=== PATIENT | male | born 1965 | race Caucasian/White ===

== ENCOUNTER 2016-11-26 10:24 | Emergency (ER) | payer BC ==
[2016-11-26 10:45] VITALS: PULSE 78; TEMP 97.8
[2016-11-26 11:17] LABS: RBC URINE 2 /hpf (0-3); URINE BILIRUBIN NEGATIVE (NEGATIVE); URINE BLOOD NEGATIVE (NEGATIVE); URINE COLOR Yellow (YELLOW); URINE GLUCOSE (UA) NORMAL (Normal); URINE KETONE NEGATIVE (NEGATIVE); URINE LEUKOCYTE ESTERASE NEG Leu/uL (Negative); URINE PROTEIN NEGATIVE (NEGATIVE); URINE UROBILINOGEN NORMAL mg/dL (0.2-1.0); WBC URINE 2 /hpf (0-5)
--- NOTE | 2016-11-26 12:44 | C.PDOC ---
History Of Present Illness Pt c/o suprapubic pain that started 2 days ago and gradually improved. Time Seen by Provider: 11/26/16 12:19 Chief Complaint (Nursing): Abdominal Pain History Per: Patient Onset/Duration Of Symptoms: Days (2) Current Symptoms Are (Timing): Gone Severity: Moderate Location Of Pain/Discomfort: Suprapubic Quality Of Discomfort: "Pain" Exacerbating Factors: Other (Urination) Alleviating Factors: OTC Meds Additional History Per: Prior Records Past Medical History Reviewed: Historical Data, Nursing Documentation, Vital Signs Vital Signs: Last Vital Signs Temp 97.8 F 11/26/16 10:42 Pulse 78 11/26/16 10:42 Resp 18 11/26/16 10:42 BP 121/77 11/26/16 10:42 Pulse Ox 97 11/26/16 10:42 - Medical History PMH: No Chronic Diseases Surgical History: No Surg Hx Family History: States: Other (Kidney stones) - Social History Hx Tobacco Use: No Hx Alcohol Use: No Hx Substance Use: No - Immunization History Hx Tetanus Toxoid Vaccination: No Hx Influenza Vaccination: No Hx Pneumococcal Vaccination: No Review Of Systems Except As Marked, All Systems Reviewed And Found Negative. Constitutional: Negative for: Fever, Weakness Cardiovascular: Negative for: Chest Pain Respiratory: Negative for: Shortness of Breath Gastrointestinal: Negative for: Vomiting, Diarrhea, Constipation Genitourinary: Negative for: Scrotal Pain Musculoskeletal: Negative for: Neck Pain, Back Pain Skin: Negative for: Rash Neurological: Negative for: Weakness, Numbness, Seizures, Altered Mental Status Physical Exam - Physical Exam Appears: Non-toxic, No Acute Distress Skin: Normal Color, Warm, Dry, No Rash Head: Atraumatic, Normacephalic Eye(s): bilateral: PERRL, EOMI Neck: Normal ROM, Supple Cardiovascular: Rhythm Regular Respiratory: Normal Breath Sounds, No Accessory Muscle Use Gastrointestinal/Abdominal: Soft, No Tenderness Back: No CVA Tenderness Male Genital: No Testicular Tenderness, No Testicular Swelling, No Inguinal Tenderness, No Inguinal Swelling, No Scrotal Swelling, Circumcised Extremity: Normal ROM Neurological/Psych: Oriented x3, Normal Motor, Normal Sensation ED Course And Treatment - Laboratory Results Interpretation Of Abnormal: Urinalysis normal O2 Sat by Pulse Oximetry: 97 Pulse Ox Interpretation: Normal Reassessment Condition: Improved Medical Decision Making Medical Decision Making: Pt most like passed a small kidney stone. Disposition Counseled Patient/Family Regarding: Studies Performed, Diagnosis, Need For Followup - Disposition Referrals: lEba Hoyos MD [Medical Doctor] - Disposition: HOME/ ROUTINE Disposition Time: 12:45 Condition: IMPROVED Additional Instructions: Follow up with your doctor this week for further evaluation and treatment. Return to the ER if you develop fever, vomiting, pain returns, worsening of symptoms or if you have any other concerns. Forms: Gen Discharge Inst Togolese, General Discharge Instructions - Clinical Impression Clinical Impression: Resolved abdominal pain
[2016-11-26 12:54] VITALS: BP 122/85; RESP 16; O2SAT 98
== END 2016-11-26 12:53 | disposition home or self-care (01) ==
LOC: C.ER 10:24
DX: R10.30 Lower abdominal pain, unspecified (principal)

== ENCOUNTER 2018-03-06 18:06 | Inpatient (IN) | payer BC ==
[2018-03-06 18:07] VITALS: BMI 31.5
[2018-03-06] MEDS ORDERED: Sodium Chloride 0.9% 1,000 ML IV ONE ×2 (18:44→21:23)
[2018-03-06] MEDS ORDERED: levETIRAcetam 500 MG in Sodium Chloride 0.9% 100 ML IVPB STA (18:44)
--- NOTE | 2018-03-06 19:12 | C.PDOC ---
History Of Present Illness 59 year old male with PMHx of seizures presents to the ED for evaluation of witnessed at home. While en route to the ED in the ambulance patient had 3 more witnessed by EMS seizures of 45 seconds each. Patient was given 2 mg of ativan IV. Patient admits to drinking the equivalent of 10-15 alcoholic beverages/day ( 6 x 24 ounce beers, and "a few shots") pt's sister presents later to support the HPI. Pt heavy drinker of alcohol, unclear medication compliance. pt's sister insists pt is admitted overnight as pts mother is elderly and cannot care for him alone. pt's sister insists on head CT, though no clinical indication and unnecessary radiation to brain is explained, "because his wants it." Time Seen by Provider: 03/06/18 18:39 Chief Complaint (Nursing): Seizure History Per: Patient, EMS History/Exam Limitations: no limitations Recent Seizure Activity Began: Just Before Arrival Number Of Seizures: Multiple Length Of Seizures (Duration): Seconds (45) Quality Of Seizure: Generalized Post-ictal Period: Yes Severity: Mild Recent travel outside of the [place]: No Additional History Per: Patient, EMS Past Medical History Reviewed: Historical Data, Nursing Documentation, Vital Signs Vital Signs: Last Vital Signs Temp 98.5 F 03/06/18 22:35 Pulse 71 03/06/18 22:35 Resp 18 03/06/18 22:35 BP 180/89 H 03/06/18 22:35 Pulse Ox 97 03/06/18 22:35 - Medical History PMH: Seizures Surgical History: No Surg Hx Family History: States: Unknown Family Hx - Social History Hx Tobacco Use: No Hx Alcohol Use: No Hx Substance Use: No - Immunization History Hx Tetanus Toxoid Vaccination: No Hx Influenza Vaccination: No Hx Pneumococcal Vaccination: No Review Of Systems Constitutional: Negative for: Fever, Chills Cardiovascular: Negative for: Chest Pain Respiratory: Negative for: Shortness of Breath Gastrointestinal: Negative for: Nausea, Vomiting Genitourinary: Negative for: Dysuria, Frequency, Incontinence Neurological: Positive for: Confusion. Negative for: Weakness, Numbness, Headache, Dizziness Physical Exam - Physical Exam Appears: Non-toxic, Confused Skin: Normal Color, Warm, Dry Head: Atraumatic, Normacephalic Eye(s): bilateral: Normal Inspection Oral Mucosa: Moist Neck: Normal ROM, No Midline Cervical Tenderness, Supple Chest: Symmetrical Cardiovascular: Rhythm Regular Respiratory: Normal Breath Sounds, No Rales, No Rhonchi, No Wheezing Gastrointestinal/Abdominal: Soft, No Tenderness, No Guarding, No Rebound Extremity: Normal ROM, No Tenderness, No Swelling Extremity: Bilateral: Atraumatic Neurological/Psych: Oriented x3 Gait: Unable To Assess ED Course And Treatment - Laboratory Results Result Diagrams: 03/06/18 19:10 03/06/18 19:09 Lab Interpretation: Normal (bnp/trop neg, CPK 602 mild elev) ECG: Interpreted By Ri ECG Rhythm: Sinus Rhythm, Nonspecific Changes (+ t^ inversions III, AVF, v5, v6 no reciprocal changes.) ECG Interpretation: Normal Rate From EC O2 Sat by Pulse Oximetry: 98 (ON RA) Pulse Ox Interpretation: Normal - Radiology CXR: Interpreted by Me CXR Interpretation: Yes: No Acute Disease - CT Scan/US CT HEAD Other Rad Studies (CT/US): Read By Radiologist, Radiology Report Reviewed CT/US Interpretation: IMPRESSION: Remote right posterior parietal craniotomy, encephalomalacia in the underlying. posterior right parietal lobe, no acute intracranial abnormality; sinus disease. Thank you for allowing us to participate in the care of your patient. Dictated and Authenticated by: Naila Forrester MD. 03/06/2018 10:37 PM Eastern Time ([place] & [place]) Progress Note: 2100: pt irritable, argumentative. pt allows pt's family to decide if he will be admitted for overnight Obs Reevaluation Time: 21:09 Reassessment Condition: Improved (more awake and aware) - Physician Consult Information Outcome Of Conversation: 2100: d/w Dr. Bueno, Medicine Employee Benefits Manager, ok to admit. 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 Disposition Doctor Will See Patient In The: Hospital Counseled Patient/Family Regarding: Studies Performed, Diagnosis - Disposition Disposition: HOSPITALIZED Disposition Time: 21:08 Condition: GOOD - Clinical Impression Clinical Impression: Seizure - Scribe Statement The provider has reviewed the documentation as recorded by the Scribe Basil Garcia All medical record entries made by the Bereibe were at my direction and personally dictated by me. I have reviewed the chart and agree that the record accurately reflects my personal performance of the history, physical exam, medical decision making, and the department course for this patient. I have also personally directed, reviewed, and agree with the discharge instructions and disposition.
[2018-03-06 19:24] LABS: BASO # 0.1 K/uL (0.0-0.2); BASO % 0.6 % (0.0-2.0); EOS % 0.2 % (0.0-4.0); HEMOGLOBIN 16.1 g/dL (12.0-18.0); LYMPH # 0.7 K/uL (1.0-4.3); LYMPH % 5.7 % (20.0-40.0); MEAN CELL VOLUME 91.7 fL (80.0-94.0); MEAN CORPUSCULAR HEMOGLOBIN 30.3 pg (27.0-31.0); MEAN CORPUSCULAR HGB CONC 33.1 g/dL (33.0-37.0); MEAN PLATELET VOLUME 9.1 fL (7.2-11.7); MONO % 7.4 % (0.0-10.0); NEUT # 11.3 K/uL (1.8-7.0); NEUT % 86.1 % (50.0-75.0); PLATELET COUNT 195 K/uL (130-400); RBC 5.32 Mil/uL (4.40-5.90); RED CELL DISTRIBUTION WIDTH 14.4 % (11.5-14.5); WHITE BLOOD COUNT 13.1 K/uL (4.8-10.8)
[2018-03-06 19:38] LABS: ALB/GLOB RATIO 1.2 (1.0-2.1); ALT/SGPT 85 U/L (21-72); AST/SGOT 103 U/L (17-59); BLOOD UREA NITROGEN 13 mg/dL (9-20); CALCIUM 9.9 mg/dl (8.6-10.4); GFR AFRICAN-AMERICAN > 60; GFR NON-AFRICAN AMERICAN > 60
[2018-03-06 19:56] LABS: LYMPHOCYTE 11 % (20-40); MONOCYTE 4 % (0-10); NEUTROPHIL 85 % (50-75); PLATELET ESTIMATE NORMAL (NORMAL); TOTAL CELLS COUNTED 100
[2018-03-06 19:57] LABS: SQUAMOUS EPITHIAL < 1 /hpf (0-5); URINE BACTERIA RARE (<OCC); URINE BILIRUBIN NEGATIVE (NEGATIVE); URINE BLOOD 2+ (NEGATIVE); URINE CLARITY Clear (Clear); URINE COLOR Yellow (YELLOW); URINE GLUCOSE (UA) 1+ mg/dL (Normal); URINE LEUKOCYTE ESTERASE NEG Leu/uL (Negative); URINE PROTEIN 3+ mg/dL (NEGATIVE); URINE UROBILINOGEN NORMAL mg/dL (0.2-1.0)
[2018-03-06 20:07] LABS: BARBITURATES, UR NEGATIVE (NEGATIVE); BENZODIAZEPINES, UR NEGATIVE (NEGATIVE); OPIATES, UR NEGATIVE (NEGATIVE); PHENCYCLIDINE, UR NEGATIVE (NEGATIVE)
--- NOTE | 2018-03-06 22:37 | CT ---
EXAM: CT Head Without Intravenous Contrast EXAM DATE/TIME: 03/06/2018 9:08 PM CLINICAL HISTORY: 59 years old, male; Signs and symptoms; Other: Seizure TECHNIQUE: Axial computed tomography images of the head/brain without intravenous contrast. All CT scans at this facility use at least one of these dose optimization techniques: automated exposure control; mA and/or kV adjustment per patient size (includes targeted exams where dose is matched to clinical indication); or iterative reconstruction. Coronal and sagittal reformatted images were created and reviewed. COMPARISON: There are no prior studies for comparison. FINDINGS: Artifacts: Motion artifact degrades image quality. Brain: Ventricles are normal in size and configuration. There is no midline shift. There are no intra-axial or extra-axial mass lesions or areas of hemorrhage. There is right posterior parietal encephalomalacia deep to the craniotomy. There are no abnormal fluid collections. Gonzalez-white differentiation is maintained. Ventricles: See above Bones: There is an old right craniotomy. 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 There is mucoperiosteal thickening and an air-fluid level in the left maxillary sinus. There is mucoperiosteal thickening in the right maxillary sinus. Postsurgical changes in the posterolateral wall of the right maxillary sinus. There is right frontal sinusitis. Mastoid air cells: Ears and mastoids: Middle ears and mastoids are unremarkable. There is streak artifact from an earring Orbits: Orbital contents are unremarkable. IMPRESSION: Remote right posterior parietal craniotomy, encephalomalacia in the underlying posterior right parietal lobe, no acute intracranial abnormality; sinus disease
[2018-03-06] MEDS: Potassium Ch 20mEq in D5-1/2NS 1,000 ML IV SCH (23:50)
[2018-03-07 08:16] LABS: HEMOGLOBIN 14.4 g/dL (12.0-18.0); MEAN CELL VOLUME 90.6 fL (80.0-94.0); MEAN CORPUSCULAR HEMOGLOBIN 31.5 pg (27.0-31.0); MEAN CORPUSCULAR HGB CONC 34.8 g/dL (33.0-37.0); MEAN PLATELET VOLUME 8.9 fL (7.2-11.7); RBC 4.57 Mil/uL (4.40-5.90); WHITE BLOOD COUNT 10.8 K/uL (4.8-10.8)
[2018-03-07 08:30] LABS: ALB/GLOB RATIO 1.2 (1.0-2.1); ALT/SGPT 65 U/L (21-72); AST/SGOT 58 U/L (17-59); BLOOD UREA NITROGEN 12 mg/dL (9-20); CALCIUM 9.1 mg/dl (8.6-10.4); GFR AFRICAN-AMERICAN > 60; GFR NON-AFRICAN AMERICAN > 60
[2018-03-07] MEDS: Potassium Ch 20mEq in D5-1/2NS 1,000 ML IV SCH ×2 (09:10→19:58)
[2018-03-07] MEDS: Thiamine 100 mg/ml Inj IM SCH (09:12)
[2018-03-07] MEDS: Enoxaparin 40 mg Syringe SC SCH (09:12)
--- NOTE | 2018-03-07 09:50 | RAD ---
PROCEDURE: CHEST RADIOGRAPH, 1 VIEW HISTORY: Seizure COMPARISON: None available. FINDINGS: LUNGS: Clear. PLEURA: No pneumothorax or pleural fluid seen. CARDIOVASCULAR: Cardiomegaly. OSSEOUS STRUCTURES: No significant abnormalities. VISUALIZED UPPER ABDOMEN: Multiple metallic clips seen overlying the right lung base and upper quadrant of the abdomen. Clinical correlation surgical history. OTHER FINDINGS: None. IMPRESSION: No active disease.
--- NOTE | 2018-03-07 15:36 | CP.PCM.CON ---
History of Present Illness - History of Present Illness History of Present Illness: Neurology Consultation Note: Mr. 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 Rangel for neurology, and states that he has been drinking heavily and has been under stress taking care of his mother. He had a seizure yesterday and EMS was called. He had 3 subsequent seizures in the vehicle, was given Ativan and has been stable since. He is not back to baseline , pleasant, conversant and has no complaints. He would like to go home. CT scan of the head did not show any acute findings, but did demonstrate the previous craniotomy and right parietal lobe encephalomalacia where the tumor was. Review of Systems - Review of Systems All systems: reviewed and no additional remarkable complaints except Past Patient History - Past Medical History & Family History Past Medical History?: Yes - Past Social History Smoking Status: Former Smoker - NEUROLOGICAL Hx Seizures: Yes - MUSCULOSKELETAL/RHEUMATOLOGICAL Hx Falls: Yes (2 weeks ago) - PSYCHIATRIC Hx Substance Use: No - SURGICAL HISTORY Hx Surgeries: No - ANESTHESIA Hx Anesthesia: No Meds Allergies/Adverse Reactions: Allergies Allergy/AdvReac Type Severity Reaction Status Date / Time seafood Allergy SHORTNESS Uncoded 03/06/18 18:06 OF BREATH - Medications Medications: Current Medications Amlodipine Besylate (Norvasc) 5 mg PO DAILY [facility] Enoxaparin Sodium (Lovenox) 40 mg SC DAILY [facility] Last Admin: 03/07/18 09:12 Dose: 40 mg Potassium Chloride/Dextrose/Sod Cl (Potassium Chl 20 Meq In D5-1/2ns) 1,000 mls @ 100 mls/hr IV .Q10H [facility] Last Admin: 03/07/18 09:10 Dose: 100 mls/hr Levetiracetam (Keppra) 500 mg PO BID [facility] Last Admin: 03/07/18 09:12 Dose: 500 mg Lorazepam (Ativan) 2 mg IVP Q4H PRN PRN Reason: Anxiety Last Admin: 03/07/18 00:19 Dose: 2 mg Pneumococcal Polyvalent Vaccine (Pneumovax 23 Vaccine) 0.5 ml IM .ONCE ONE Stop: 03/09/18 14:01 Thiamine HCl (Vitamin B1 Inj) 100 mg IM DAILY [facility] Last Admin: 03/07/18 09:12 Dose: 100 mg Physical Exam - Neurological Exam Neurological exam: Alert, CN II-XII Intact, Normal Gait, Oriented x3, Reflexes Normal Results - Vital Signs Recent Vital Signs: Last Vital Signs Temp 98.0 F 03/07/18 07:00 Pulse 72 03/07/18 07:40 Resp 20 03/07/18 07:00 BP 135/70 03/07/18 13:30 Pulse Ox 98 03/07/18 07:00 - Labs Result Diagrams: 03/07/18 07:50 03/07/18 07:50 Labs: Laboratory Results - last 24 hr 03/06/18 03/06/18 03/06/18 18:39 19:09 19:09 WBC RBC Hgb Hct MCV MCH MCHC RDW Plt Count MPV Neut % (Auto) Lymph % (Auto) [place] % (Auto) Eos % (Auto) Baso % (Auto) Neut # (Auto) Lymph # (Auto) [place] # (Auto) Eos # (Auto) Baso # (Auto) Neutrophils % (Manual) Lymphocytes % (Manual) Monocytes % (Manual) Platelet Estimate Sodium 150 H Potassium 3.9 Chloride 109 H Carbon Dioxide 17 L Anion Gap 28 H BUN 13 Creatinine 0.9 Est GFR ( Amer) > 60 Est GFR (Non-Af Amer) > 60 POC Glucose (mg/dL) 130 H Random Glucose 132 H Calcium 9.9 Magnesium Total Bilirubin 0.6 AST 103 H ALT 85 H Alkaline Phosphatase 89 Total Creatine Kinase 602 H Troponin I < 0.0120 Total Protein 9.2 H Albumin 5.0 Globulin 4.1 H Albumin/Globulin Ratio 1.2 Urine Color Urine Clarity Urine pH Ur Specific [place] Urine Protein Urine Glucose (UA) Urine Ketones Urine Blood Urine Nitrate Urine Bilirubin Urine Urobilinogen Ur Leukocyte Esterase Urine WBC (Auto) Urine RBC (Auto) Ur Squamous Epith Cells Urine Bacteria Urine Opiates Screen Urine Methadone Screen Ur Barbiturates Screen Valproic Acid < 10.0 L Ur Phencyclidine Scrn Ur Amphetamines Screen U Benzodiazepines Scrn U Oth Cocaine Metabols U Cannabinoids Screen Alcohol, Quantitative 12 H 03/06/18 03/06/18 03/06/18 19:10 19:44 19:44 WBC 13.1 H RBC 5.32 Hgb 16.1 Hct 48.8 MCV 91.7 MCH 30.3 MCHC 33.1 RDW 14.4 Plt Count 195 MPV 9.1 Neut % (Auto) 86.1 H Lymph % (Auto) 5.7 L [place] % (Auto) 7.4 Eos % (Auto) 0.2 Baso % (Auto) 0.6 Neut # (Auto) 11.3 H Lymph # (Auto) 0.7 L [place] # (Auto) 1.0 H Eos # (Auto) 0.0 Baso # (Auto) 0.1 Neutrophils % (Manual) 85 H Lymphocytes % (Manual) 11 L Monocytes % (Manual) 4 Platelet Estimate Normal Sodium Potassium Chloride Carbon Dioxide Anion Gap BUN Creatinine Est GFR ( Amer) Est GFR (Non-Af Amer) POC Glucose (mg/dL) Random Glucose Calcium Magnesium Total Bilirubin AST ALT Alkaline Phosphatase Total Creatine Kinase Troponin I Total Protein Albumin Globulin Albumin/Globulin Ratio Urine Color Yellow Urine Clarity Clear Urine pH 5.0 Ur Specific [place] 1.023 Urine Protein 3+ H Urine Glucose (UA) 1+ H Urine Ketones Trace Urine Blood 2+ H Urine Nitrate Negative Urine Bilirubin Negative Urine Urobilinogen Normal Ur Leukocyte Esterase Neg Urine WBC (Auto) 17 H Urine RBC (Auto) 1 Ur Squamous Epith Cells < 1 Urine Bacteria Rare Urine Opiates Screen Negative Urine Methadone Screen Negative Ur Barbiturates Screen Negative Valproic Acid Ur Phencyclidine Scrn Negative Ur Amphetamines Screen Negative U Benzodiazepines Scrn Negative U Oth Cocaine Metabols Negative U Cannabinoids Screen Negative Alcohol, Quantitative 03/07/18 03/07/18 07:50 07:50 WBC 10.8 RBC 4.57 Hgb 14.4 Hct 41.4 MCV 90.6 MCH 31.5 H MCHC 34.8 RDW 14.0 Plt Count 153 MPV 8.9 Neut % (Auto) Lymph % (Auto) [place] % (Auto) Eos % (Auto) Baso % (Auto) Neut # (Auto) Lymph # (Auto) [place] # (Auto) Eos # (Auto) Baso # (Auto) Neutrophils % (Manual) Lymphocytes % (Manual) Monocytes % (Manual) Platelet Estimate Sodium 142 Potassium 3.6 Chloride 106 Carbon Dioxide 27 Anion Gap 13 BUN 12 Creatinine 0.7 L Est GFR ( Amer) > 60 Est GFR (Non-Af Amer) > 60 POC Glucose (mg/dL) Random Glucose 116 H Calcium 9.1 Magnesium 2.3 Total Bilirubin 1.4 H AST 58 ALT 65 Alkaline Phosphatase 64 Total Creatine Kinase Troponin I Total Protein 7.5 Albumin 4.0 Globulin 3.5 Albumin/Globulin Ratio 1.2 Urine Color Urine Clarity Urine pH Ur Specific [place] Urine Protein Urine Glucose (UA) Urine Ketones Urine Blood Urine Nitrate Urine Bilirubin Urine Urobilinogen Ur Leukocyte Esterase Urine WBC (Auto) Urine RBC (Auto) Ur Squamous Epith Cells Urine Bacteria Urine Opiates Screen Urine Methadone Screen Ur Barbiturates Screen Valproic Acid Ur Phencyclidine Scrn Ur Amphetamines Screen U Benzodiazepines Scrn U Oth Cocaine Metabols U Cannabinoids Screen Alcohol, Quantitative Assessment & Plan (1) Seizure Assessment and Plan: The patient has good follow-up with Dr. Rangel and has refills of his medications. He was instructed not to drink alcohol, maintain good sleep hygiene and avoid seizure triggers. No further recommendations at this time. The patient will take the same home doses of Keppra and Lamictal. He stated that he has enough pills at home and has refills. Thank you for this consultation. Status: Acute Priority: High
[2018-03-08 00:28] VITALS: RESP 20; O2SAT 97
[2018-03-08] MEDS: Potassium Ch 20mEq in D5-1/2NS 1,000 ML IV SCH (06:11)
[2018-03-08 07:56] VITALS: BP 171/94; TEMP 98
[2018-03-08] MEDS: Thiamine 100 mg/ml Inj IM SCH (10:00)
[2018-03-08] MEDS: Enoxaparin 40 mg Syringe SC SCH (10:00)
[2018-03-08 10:31] LABS: BASO % 0.6 % (0.0-2.0); EOS # 0.1 K/uL (0.0-0.7); EOS % 1.7 % (0.0-4.0); HEMOGLOBIN 14.7 g/dL (12.0-18.0); LYMPH # 1.3 K/uL (1.0-4.3); LYMPH % 15.7 % (20.0-40.0); MEAN CORPUSCULAR HEMOGLOBIN 31.5 pg (27.0-31.0); MEAN CORPUSCULAR HGB CONC 34.6 g/dL (33.0-37.0); MEAN PLATELET VOLUME 8.9 fL (7.2-11.7); MONO # 0.7 K/uL (0.0-0.8); MONO % 9.2 % (0.0-10.0); NEUT # 5.9 K/uL (1.8-7.0); NEUT % 72.8 % (50.0-75.0); RBC 4.68 Mil/uL (4.40-5.90); RED CELL DISTRIBUTION WIDTH 14.3 % (11.5-14.5); WHITE BLOOD COUNT 8.1 K/uL (4.8-10.8)
[2018-03-08 10:54] LABS: ALB/GLOB RATIO 1.1 (1.0-2.1); ALBUMIN 3.9 g/dL (3.5-5.0); ALT/SGPT 49 U/L (21-72); AST/SGOT 47 U/L (17-59); BLOOD UREA NITROGEN 11 mg/dL (9-20); CALCIUM 9.2 mg/dl (8.6-10.4); GFR AFRICAN-AMERICAN > 60; GFR NON-AFRICAN AMERICAN > 60
--- NOTE | 2018-03-08 13:04 | CP.PCM.PN ---
Subjective - Date & Time of Evaluation Date of Evaluation: 03/08/18 Time of Evaluation: 13:00 - Subjective Subjective: Internal Medicine Progress Note - Dr Zheng Service Patient seen and examined at bedside. Per nursing no acute events overnight. Patient is doing well, offers no complaints at this time. No seizures. Denies headaches, dizziness, cp, palpitations, sob, abdominal pain, urinary symptoms. Objective - Vital Signs/Intake and Output Vital Signs (last 24 hours): Temp Pulse Resp BP Pulse Ox 98.0 F 64 20 171/94 H 97 03/08/18 07:00 03/08/18 07:00 03/08/18 07:00 03/08/18 07:00 03/08/18 07:00 Intake and Output: 03/08/18 03/08/18 06:59 18:59 Intake Total 820 Output Total 200 Balance 620 - Medications Medications: Current Medications Amlodipine Besylate (Norvasc) 5 mg PO DAILY [facility] Last Admin: 03/08/18 08:37 Dose: 5 mg Enoxaparin Sodium (Lovenox) 40 mg SC DAILY [facility] Last Admin: 03/08/18 10:00 Dose: 40 mg Potassium Chloride/Dextrose/Sod Cl (Potassium Chl 20 Meq In D5-1/2ns) 1,000 mls @ 100 mls/hr IV .Q10H [facility] Last Admin: 03/08/18 06:11 Dose: 100 mls/hr Levetiracetam (Keppra) 500 mg PO BID [facility] Last Admin: 03/08/18 10:00 Dose: 500 mg Lorazepam (Ativan) 2 mg IVP Q4H PRN PRN Reason: Anxiety Last Admin: 03/07/18 00:19 Dose: 2 mg Pneumococcal Polyvalent Vaccine (Pneumovax 23 Vaccine) 0.5 ml IM .ONCE ONE Stop: 03/09/18 14:01 Thiamine HCl (Vitamin B1 Inj) 100 mg IM DAILY [facility] Last Admin: 03/08/18 10:00 Dose: 100 mg - Labs Labs: 03/08/18 10:26 03/08/18 10:26 - Constitutional Appears: Well, No Acute Distress - Head Exam Head Exam: ATRAUMATIC, NORMAL INSPECTION, NORMOCEPHALIC - Eye Exam Eye Exam: EOMI, Normal appearance Pupil Exam: NORMAL ACCOMODATION - ENT Exam ENT Exam: Mucous Membranes Moist - Neck Exam Neck Exam: Full ROM - Respiratory Exam Respiratory Exam: Clear to Ausculation Bilateral, NORMAL BREATHING PATTERN. absent: Rales, Rhonchi, Wheezes - Cardiovascular Exam Cardiovascular Exam: REGULAR RHYTHM, +S1, +S2 - GI/Abdominal Exam GI & Abdominal Exam: Soft. absent: Guarding, Rigid, Tenderness - Extremities Exam Extremities Exam: Normal Inspection - Neurological Exam Neurological Exam: Alert, Awake, Oriented x3 - Psychiatric Exam Psychiatric exam: Normal Affect, Normal Mood - Skin Skin Exam: Normal Color, Warm Assessment and Plan - Assessment and Plan (Free Text) Assessment: A/P: Patient is a 59 year old male with past medical history of right parietal lobe resection, seizure disorder, alcohol abuse, noncompliance? presented to the ED for witness seizure activity at home by family. Per ED document, patient also had 3 more witnessed seizures by EMS that were 45 seconds each. While en route he was given Ativan IV. Seizure Disorder -Stable, afebrile -CT head : no acute intracranial pathology -No reported seizures overnight -Continue Keppra 500mg PO BID, Lamictal 150mg PO daily -Neurology on consult, help appreciated -Seizure precautions -Aspiration precautions Alcohol Abuse -Alcohol level 12 on admission -Per ED note, patient admits to drinking 10-15 alcoholic beverages/day -Patient advised must stop drinking as this is detrimental to his health -Patient verbalizes understanding -Recommend AA meetings outpatient Hypertension -IV fluids discontinued -Amlodipine 10mg PO daily -Monitor BPs DISPO: Patient is cleared for discharge home. Patient to follow up with his Neurologist and PMD within 1 week. Patient states that he needs refills. He was given prescriptions for Keppra, Norvasc, and Lamictal. Plan discussed with Dr Zheng. Gladis Thomas DO PGY-2
[2018-03-08 16:45] VITALS: PULSE 45
--- NOTE | 2018-03-08 23:23 | CARD ---
APPROVED REPORT EKG Measurement Heart [id number] <Conclusion> Normal sinus rhythm with sinus arrhythmia Moderate voltage criteria for LVH, may be normal variant ST & T wave abnormality, consider inferior ischemia Abnormal ECG
[2018-03-09] MEDS ORDERED: Pneumococcal 23-Valent Vaccine IM ONE (14:00)
== END 2018-03-08 14:30 | disposition home or self-care (01) | DRG 101 ==
LOC: C.ER 18:06 → C.9E 20:50 → C.5S 22:11
PROVIDERS: ADMIT Internal Medicine Pulmonary Disease; ATTEND Internal Medicine Pulmonary Disease
DX: G40.909 Epilepsy, unspecified, not intractable, without status epilepticus (principal); I10 Essential (primary) hypertension; F10.10 Alcohol abuse, uncomplicated; Y90.0 Blood alcohol level of less than 20 mg/100 ml; Z87.891 Personal history of nicotine dependence